=== PATIENT | female | born 1975 | race Two or more races ===

== ENCOUNTER 2021-06-06 11:04 | Outpatient (REF) | payer MEDICAID, SELFPAY ==
[2021-06-06 14:08] LABS: MANUAL DIFF FLAG NO
[2021-06-06 14:18] LABS: Basophils Percent Auto 0.4 % (0-2); Eosinophils Absolute Auto 0.2 X10*3/uL (0.0-0.4); Eosinophils Percent Auto 2.3 % (0-4); Hematocrit 36.6 % (37.0-47.0); Hemoglobin 11.7 g/dl (12.0-16.0); Imm Gran Abs Auto 0.02 X10*3/uL (0.00-0.03); Imm Gran Pct Auto 0.3 % (0.0-0.4); Lymphocytes Absolute Auto 1.7 X10*3/uL (1.2-4.9); Lymphocytes Percent Auto 22.3 % (20-40); Mean Corpuscular Hemoglobin 27.1 pg (27.0-33.0); Mean Corpuscular Volume 84.9 fL (80.0-98.0); Mean Platelet Volume 12.8 fL (9.4-12.3); Monocytes Absolute Auto 0.7 X10*3/uL (0.1-1.2); Monocytes Percent Auto 9.6 % (2-11); Neutrophils Absolute Auto 4.8 x10*3/uL (2.0-8.3); Neutrophils Percent Auto 65.1 % (45-73); Platelet Count 224 X10*3/uL (160-400); Red Blood Count 4.31 X10*6/uL (4.20-5.50); Red Cell Distribution Width 14.1 % (11.0-16.0); White Blood Count 7.4 X10*3/uL (4.8-10.8)
[2021-06-06 14:31] LABS: Estimated Average Glucose 157 mg/dL; Hemoglobin A1c % 7.1 %
[2021-06-06 14:32] LABS: Alanine Aminotransferase 15 U/L (0-31); Albumin Level 3.7 g/dL (3.5-5.0); Alkaline Phosphatase 61 U/L (39-117); Anion Gap 12 (12-20); Aspartate Amino Transferase 15 U/L (5-31); Bilirubin Total 0.4 mg/dL (0.0-1.0); Blood Urea Nitrogen 8 mg/dL (9-16); Calcium 8.7 mg/dL (8.4-10.2); Carbon Dioxide 24 mmol/L (22-29); Chloride 109 mmol/L (96-108); Cholesterol 156 mg/dL; Estimated Glomerular Filt Rate > 60; Glucose Fasting 93 mg/dL (60-99); HDL Cholesterol 34 mg/dL; LDL Cholesterol Calculated 95 mg/dl; Potassium 4.5 mmol/L (3.3-5.1); Sodium 140 mmol/L (135-145); Total Protein 7.3 g/dL (6.5-8.0); Triglycerides 139 mg/dL
[2021-06-06 14:57] LABS: Thyroid Stimulating Hormone 1.07 uIU/mL (0.32-4.0)
== END 2021-06-06 11:05 | disposition home or self-care (01) ==
LOC: HO.10HDL 11:04
PROVIDERS: Visit Provider Internal Medicine
DX: E11.9 Type 2 diabetes mellitus without complications (principal); F32.9 Major depressive disorder, single episode, unspecified; I35.0 Nonrheumatic aortic (valve) stenosis; M06.4 Inflammatory polyarthropathy; Z95.4 Presence of other heart-valve replacement
CPT/HCPCS: 36415; 80053; 80061; 83036; 84443; 85025

== ENCOUNTER 2021-09-05 10:42 | Outpatient (REF) | payer MEDICAID, SELFPAY ==
[2021-09-05 14:08] LABS: Alanine Aminotransferase 19 U/L (0-31); Albumin Level 3.7 g/dL (3.5-5.0); Alkaline Phosphatase 66 U/L (39-117); Anion Gap 11 (12-20); Aspartate Amino Transferase 14 U/L (5-31); Bilirubin Total 0.3 mg/dL (0.0-1.0); Blood Urea Nitrogen 13 mg/dL (9-16); Carbon Dioxide 27 mmol/L (22-29); Chloride 106 mmol/L (96-108); Estimated Glomerular Filt Rate > 60; Glucose Fasting 84 mg/dL (60-99); Potassium 4.3 mmol/L (3.3-5.1); Sodium 140 mmol/L (135-145); Total Protein 7.4 g/dL (6.5-8.0)
[2021-09-05 14:12] LABS: Estimated Average Glucose 143 mg/dL; Hemoglobin A1c % 6.6 %
[2021-09-05 14:22] LABS: Creatinine Urine 80.08 mg/dL; Microalbumin Urine < 5.0 mg/L
== END 2021-09-05 10:43 | disposition home or self-care (01) ==
LOC: HO.10HDL 10:42
PROVIDERS: Visit Provider Internal Medicine
DX: E11.9 Type 2 diabetes mellitus without complications (principal); E78.00 Pure hypercholesterolemia, unspecified; F32.5 Major depressive disorder, single episode, in full remission; I10 Essential (primary) hypertension; I35.0 Nonrheumatic aortic (valve) stenosis
CPT/HCPCS: 36415; 80053; 82043; 83036

== ENCOUNTER 2022-09-28 09:03 | Outpatient (REF) | payer MEDICAID, SELFPAY ==
[2022-09-28 10:43] LABS: MANUAL DIFF FLAG NO
[2022-09-28 10:47] LABS: Basophils Absolute Auto 0.1 X10*3/uL (0.0-0.2); Eosinophils Absolute Auto 0.2 X10*3/uL (0.0-0.4); Eosinophils Percent Auto 3.2 % (0-4); Hematocrit 42.5 % (37.0-47.0); Hemoglobin 13.5 g/dl (12.0-16.0); Imm Gran Abs Auto 0.02 X10*3/uL (0.00-0.03); Imm Gran Pct Auto 0.4 % (0.0-0.4); Lymphocytes Absolute Auto 1.4 X10*3/uL (1.2-4.9); Lymphocytes Percent Auto 27.9 % (20-40); Mean Corpuscular HGB Conc 31.8 g/dl (31.0-35.0); Mean Corpuscular Hemoglobin 28.3 pg (27.0-33.0); Mean Corpuscular Volume 89.1 fL (80.0-98.0); Mean Platelet Volume 11.8 fL (9.4-12.3); Monocytes Absolute Auto 0.5 X10*3/uL (0.1-1.2); Monocytes Percent Auto 10.7 % (2-11); Neutrophils Absolute Auto 2.9 x10*3/uL (2.0-8.3); Neutrophils Percent Auto 56.8 % (45-73); Platelet Count 171 X10*3/uL (160-400); Red Blood Count 4.77 X10*6/uL (4.20-5.50); Red Cell Distribution Width 12.5 % (11.0-16.0); White Blood Count 5.1 X10*3/uL (4.8-10.8)
[2022-09-28 11:19] LABS: Alanine Aminotransferase 20 U/L (0-31); Albumin Level 3.7 g/dL (3.5-5.0); Alkaline Phosphatase 60 U/L (39-117); Anion Gap 11 (12-20); Aspartate Amino Transferase 18 U/L (5-31); Bilirubin Total 0.3 mg/dL (0.0-1.0); Blood Urea Nitrogen 9 mg/dL (9-16); Calcium 8.4 mg/dL (8.4-10.2); Carbon Dioxide 25 mmol/L (22-29); Chloride 110 mmol/L (96-108); Cholesterol 165 mg/dL; Estimated Glomerular Filt Rate > 60; Glucose Fasting 110 mg/dL (60-99); HDL Cholesterol 40 mg/dL; LDL Cholesterol Calculated 103 mg/dl; Sodium 141 mmol/L (135-145); Total Protein 7.2 g/dL (6.5-8.0); Triglycerides 111 mg/dL
[2022-09-28 11:34] LABS: Vitamin B12 212 pg/mL (200-900)
== END 2022-09-28 09:04 | disposition home or self-care (01) ==
LOC: HO.10HDL 09:03
PROVIDERS: Visit Provider Internal Medicine
DX: E11.9 Type 2 diabetes mellitus without complications (principal); F32.2 Major depressive disorder, single episode, severe without psychotic features; G89.29 Other chronic pain; M06.4 Inflammatory polyarthropathy
CPT/HCPCS: 36415; 80053; 80061; 82607; 82746; 84443; 85025

== ENCOUNTER 2023-02-01 11:44 | Outpatient (REF) | payer MEDICAID, SELFPAY | END 2023-02-01 11:45 | disposition home or self-care (01) | LOC: HO.10HDL 11:44 | PROVIDERS: Visit Provider Internal Medicine | DX: Z00.00 Encounter for general adult medical examination without abnormal findings (principal); D51.9 Vitamin B12 deficiency anemia, unspecified; E11.9 Type 2 diabetes mellitus without complications; E78.00 Pure hypercholesterolemia, unspecified; F32.4 Major depressive disorder, single episode, in partial remission | CPT/HCPCS: 36415; 80053; 80061; 82043; 83036 ==

== ENCOUNTER 2023-05-02 08:23 | Outpatient (REF) | payer MEDICAID, SELFPAY ==
[2023-05-02 10:42] LABS: Alanine Aminotransferase 27 U/L (0-31); Albumin Level 3.9 g/dL (3.5-5.0); Alkaline Phosphatase 44 U/L (39-117); Anion Gap 14 (12-20); Aspartate Amino Transferase 17 U/L (5-31); Bilirubin Total 0.4 mg/dL (0.0-1.0); Blood Urea Nitrogen 8 mg/dL (9-16); Calcium 9.2 mg/dL (8.4-10.2); Carbon Dioxide 25 mmol/L (22-29); Chloride 108 mmol/L (96-108); Estimated Glomerular Filt Rate > 60; Glucose Random 130 mg/dL (60-115); Potassium 4.3 mmol/L (3.3-5.1); Sodium 143 mmol/L (135-145); Total Protein 7.3 g/dL (6.5-8.0)
[2023-05-02 10:56] LABS: Estimated Average Glucose 157 mg/dL; Hemoglobin A1c % 7.1 % (<6.0)
== END 2023-05-02 08:24 | disposition home or self-care (01) ==
LOC: HO.10HDL 08:23
PROVIDERS: Visit Provider Internal Medicine
DX: E11.9 Type 2 diabetes mellitus without complications (principal); E78.00 Pure hypercholesterolemia, unspecified; I10 Essential (primary) hypertension; R74.01 Elevation of levels of liver transaminase levels
CPT/HCPCS: 36415; 80053; 83036

== ENCOUNTER 2024-01-14 11:48 | Outpatient (REF) | payer MEDICAID, SELFPAY ==
[2024-01-14 13:51] LABS: Estimated Average Glucose 160 mg/dL; Hemoglobin A1c % 7.2 % (<6.0)
[2024-01-14 14:13] LABS: Alanine Aminotransferase 22 U/L (0-31); Albumin Level 3.6 g/dL (3.5-5.0); Alkaline Phosphatase 45 U/L (39-117); Anion Gap 13 (12-20); Aspartate Amino Transferase 15 U/L (5-31); Bilirubin Total 0.3 mg/dL (0.0-1.0); Blood Urea Nitrogen 8 mg/dL (9-16); Calcium 8.7 mg/dL (8.4-10.2); Carbon Dioxide 25 mmol/L (22-29); Chloride 110 mmol/L (96-108); Estimated Glomerular Filt Rate > 60; Glucose Random 100 mg/dL (60-115); Potassium 4.5 mmol/L (3.3-5.1); Sodium 143 mmol/L (135-145); Total Protein 6.9 g/dL (6.5-8.0)
== END 2024-01-14 11:49 | disposition home or self-care (01) ==
LOC: HO.10HDL 11:48
PROVIDERS: Visit Provider Internal Medicine
DX: I10 Essential (primary) hypertension (principal); E11.9 Type 2 diabetes mellitus without complications; E78.00 Pure hypercholesterolemia, unspecified; Z68.36 Body mass index [BMI] 36.0-36.9, adult; Z95.4 Presence of other heart-valve replacement
CPT/HCPCS: 36415; 80053; 83036

== ENCOUNTER 2024-04-11 11:01 | Outpatient (REF) | payer MEDICAID, SELFPAY ==
[2024-04-11 11:49] LABS: Estimated Average Glucose 154 mg/dL
[2024-04-11 12:23] LABS: Erythrocyte Sedimentation Rate 34 MM/HR (0-20)
[2024-04-11 12:32] LABS: Creatinine Urine 211.32 mg/dL
[2024-04-11 12:37] LABS: Alanine Aminotransferase 13 U/L (0-31); Albumin Level 3.4 g/dL (3.5-5.0); Alkaline Phosphatase 43 U/L (39-117); Anion Gap 12 (12-20); Aspartate Amino Transferase 16 U/L (5-31); Bilirubin Total 0.2 mg/dL (0.0-1.0); Blood Urea Nitrogen 11 mg/dL (9-16); Carbon Dioxide 25 mmol/L (22-29); Chloride 114 mmol/L (96-108); Cholesterol 88 mg/dL (<200); Estimated Glomerular Filt Rate > 60; Glucose Random 110 mg/dL (60-115); HDL Cholesterol 26 mg/dL (>40); LDL Cholesterol Calculated 45 mg/dL (<100); Potassium 4.7 mmol/L (3.3-5.1); Sodium 146 mmol/L (135-145); Total Protein 6.7 g/dL (6.5-8.0); Triglycerides 88 mg/dL (<150)
[2024-04-11 12:44] LABS: Rheumatoid Factor < 13.0 IU/mL (<15.0)
[2024-04-17 20:48] LABS: Cyclic Citrullinated Peptide <16 UNITS
== END 2024-04-11 11:02 | disposition home or self-care (01) ==
LOC: HO.LAB 11:01
PROVIDERS: PCP Internal Medicine; Visit Provider Internal Medicine
DX: E11.9 Type 2 diabetes mellitus without complications (principal); H26.9 Unspecified cataract; M06.4 Inflammatory polyarthropathy; Z95.4 Presence of other heart-valve replacement
CPT/HCPCS: 36415; 80053; 80061; 82043; 82570; 83036; 85652; 86200; 86431

== ENCOUNTER 2024-06-12 08:32 | Outpatient (AMB) | payer MEDICAID, SELFPAY ==
[2024-06-12 08:33] VITALS: BP 128/70; PULSE 67; O2SAT 98; BMI 35.0
--- NOTE | 2024-06-12 08:33 | A.OFFVIS_ITS ---
Vital Signs 06/12/24 08:33 Height 5 ft 1 in Weight 185 lb BMI 35.0 BP 128/70 Blood Pressure Location Lt brachial Position Sitting Pulse 67 Pulse Source Pulse Oximeter Pulse Oximetry (%) 98 Oxygen Delivery Method Room Air Intake Visit Reasons: Joint Pain Intake Note: Patient presents today for polyarthralgia, she is a new patient, referred by PCP Rosetta Penaloza. She states she has had symptoms for almost 14 years. She states that she had used Indocin and predsone.. The doctor suspended it because she had heart surgery 4 years ago. Mechanical Insulator Required: Yes Mechanical Insulator Services: Mechanical Insulator Present Mechanical Insulator Name: [id number] Curt Allergies No Known Allergies Allergy (Verified 06/12/24 08:45) Medication List - Last Reconciled 06/12/24 by Micki Campbell MD acetaminophen (Tylenol Extra Strength) 1,000 mg PO Q6H PRN aspirin 81 mg PO DAILY atorvastatin 20 mg PO BEDTIME duloxetine 60 mg PO DAILY ibuprofen 600 mg PO Q6H PRN losartan 25 mg PO DAILY metformin 1,000 mg PO BID naproxen sodium ER 500 mg PO DAILY sitagliptin phosphate (Januvia) 100 mg PO DAILY HPI Comments Details: Patient is a 48-year-old female with hypertension and diabetes on metformin who presents for evaluation of joint pain She states that she was diagnosed with rheumatoid arthritis when she was in [place] and she was placed on prednisone and indomethacin with relief to her symptoms. Never been placed on any DMARDs. She does report morning stiffness that improves after movement but also reports pain lasting all day. She intermittently gets swelling to her hands, wrists and her feet. Denies rashes, photosensitivity, alopecia, oral/nasal ulcers, sicca symptoms, lymphadenopathy, chest pain/shortness of breath, foamy urine, lower extremity edema, muscle weakness, Raynaud's Also denies history of seizure, CVA, psychosis, history of kidney problems, history of cytopenias, history of VTE including PE or DVTs [facility] Medical History (Updated 06/12/24 @ 08:48 by Micki Campbell MD) Polyarthralgia B12 deficiency Valvular heart disease Osteoarthritis Depression Hyperlipidemia Diabetes Surgical History (Updated 07/16/23 @ 11:06 by Jayne Rodriguez RN) H/O heart valve replacement with bioprosthetic valve Review of Systems Const Details: Review of Systems Constitutional: Denies fever, chills, weight loss ENT: Denies vision changes, eye pain or eye redness, dental caries, dry mouth GI: Denies nausea, vomiting, diarrhea, abdominal pain, change in BM Pulm: Denies SOB, WATERS, hemoptysis, wheezing Cards: Denies chest pain, palpitations Skin: Denies Raynaud's, rash, nail changes, photosensitivity, HIDE TRIMMER: Denies headaches, weakness, paresthesias, recurrent falls MSK: as per HPI All other systems reviewed and are unremarkable except noted above Physical Exam Vital Signs: BMI result Body Mass Index 35.0 Physical Examination CONSTITUITIONAL Patient alert and cooperative. Well appearing and in no apparent painful distress HEENT Conjunctiva and sclera clear. ?Pupils equal round and reactive to light. ?No lymphadenopathy. ?Normal dentition. No oral or nasal ulcers noted. No evidence of discoid rash to the kenn of ears CHEST/RESPIRATORY SYSTEM Normal respiratory effort and able to speak in complete sentences. ?Clear to auscultation bilaterally. ?No crackles, rales, rhonchi, wheezes heard. CARDIAC SYSTEM Regular rate and rhythm. ?S1 and S2 heard no murmurs. ?Radial pulses intact bilaterally MSK Hands: ?Good engagement director strength bilaterally - 5/5. ?No deformities noted. ?No synovitis noted to the MCPs, PIPs or DIPs. Mild tenderness to palpation of the MCPs Wrists: ?Full range of motion at the wrists without pain. ?No tenderness to palpation or synovitis noted to the wrists. Elbows: Full range of motion without pain. No tenderness, weakness, swelling, increased warmth or erythema. Shoulders: Full range of motion without pain. No tenderness, weakness, swelling, increased warmth or erythema. Hips: Full range of motion without pain. Hip bursa: No tenderness to palpation Knees: ?Full range of motion. ?No tenderness, swelling, increased warmth or erythema.?No effusion or crepitations Ankles: Full range of motion. ?No tenderness, swelling, increased warmth or erythema.? Feet: ?Negative squeeze test. ?No tenderness to palpation or swelling of the MTPs. Tender points:??No tenderness to palpation of the neck, shoulders, chest, elbows, hips, buttocks or knees. SKIN Skin intact without rashes. Results Reviewed Results Reviewed: Laboratory Tests 04/11/24 11:15 ESR 34 H Assessment & Plan Assessment & Plan (1) Polyarthralgia: Code(s): M25.50 - Pain in unspecified joint Category: Medical Plan: #Polyarthralgia No synovitis on exam today. We will check antibodies including inflammatory markers. We will give low-dose prednisone 5 mg daily as she says this helps with her pain. Get x-rays as well. Stop ibuprofen and naproxen Plan I spent 30 minutes reviewing the record and labs, seeing the patient, discussing the treatment plan and documenting in the medical record ? For next visit: * Follow up labs and blood work Orders: Orders Complement C3 Today M25.50 - Pain in unspecified joint Complement C4 Today M25.50 - Pain in unspecified joint C Reactive Protein Today M25.50 - Pain in unspecified joint Lupus Anticoagulant Panel Today M25.50 - Pain in unspecified joint Sjogren's Antibodies Today M25.50 - Pain in unspecified joint Cyclic Citrullinated Peptide Today M25.50 - Pain in unspecified joint Rheumatoid Factor Today M25.50 - Pain in unspecified joint XR hand wrist LT Today M25.50 - Pain in unspecified joint XR hand wrist RT Today M25.50 - Pain in unspecified joint XR knee LT 3V Today M25.50 - Pain in unspecified joint XR knee standing BI Today M25.50 - Pain in unspecified joint BETINA Reflex Titer and Pattern Today M25.50 - Pain in unspecified joint Anti Extractable Nuclear Ag Today M25.50 - Pain in unspecified joint Anti DNA DS Antibody Today M25.50 - Pain in unspecified joint DNA Double Stranded-Crithidia Today M25.50 - Pain in unspecified joint Erythrocyte Sedimentation Rate Today M25.50 - Pain in unspecified joint Protein Creatinine Ratio, Ur Today M25.50 - Pain in unspecified joint UA w Microscopic Today M25.50 - Pain in unspecified joint Beta-2 Glycoprotein Antibody Today M25.50 - Pain in unspecified joint Cardiolipin Antibodies Today M25.50 - Pain in unspecified joint XR knee RT 3V Today M25.50 - Pain in unspecified joint Medications: New prednisone 5 mg PO DAILY 30 tabs 0RF M25.50 - Pain in unspecified joint Coding Level of Care Code New Pt Level 3 (84810) Diagnoses Polyarthralgia M25.50
== END 2024-06-12 09:05 | disposition home or self-care (01) ==
PROVIDERS: PCP Internal Medicine; Visit Provider Student in an Organized Health Care Education/Training Program
DX: M25.50 Pain in unspecified joint (principal)
CPT/HCPCS: 99203

== ENCOUNTER 2024-06-12 08:32 | Outpatient (REF) | payer MEDICAID, SELFPAY ==
[2024-06-12 10:21] LABS: Appearance Urine Clear; Color Urine Yellow; Glucose Urine UA Negative (Negative); Leukocyte Esterase Urine Negative (Negative); Nitrite Urine Negative (Negative); Specific Gravity - Urine <= 1.005 (1.005-1.025); Urine Blood Negative (Negative); Urine Ketones Negative (Negative); Urine Protein Negative (Neg-Trace)
[2024-06-12 10:23] LABS: Bacteria Urine Trace (None Seen); Hyaline Casts Urine 0-2 /LPF (0-2); RBC Urine 0-2 /HPF (0-2); WBC Urine 0-5 /HPF (0-5)
[2024-06-12 10:49] LABS: C Reactive Protein 0.14 mg/dL (< or = 0.50)
[2024-06-12 10:50] LABS: Rheumatoid Factor < 13.0 IU/mL (<15.0)
[2024-06-12 11:01] LABS: Creatinine Urine 27.78 mg/dL; Total Protein Urine Random < 7 mg/dL (<12)
[2024-06-12 11:05] LABS: Erythrocyte Sedimentation Rate 13 MM/HR (0-20)
[2024-06-13 13:32] LABS: Complement C3 99 mg/dL (83-193)
[2024-06-15 06:13] LABS: DRVVT 1:1 Mix NOT CORRECTED (CORRECTED); DRVVT 1:1 Mix Interpretation Positive; DRVVT Confirmation Positive (Negative); Hexagonal Phase Neutralization Negative (Negative); PTT (LAC) Screen 51 sec (<=40)
[2024-06-16 13:43] LABS: Anti Nuclear Antibody Screen NEGATIVE (NEGATIVE)
[2024-06-16 18:39] LABS: Anti DNA DS Antibody <1 IU/mL; Antibody to SS-A Antigen <1.0 NEG AI (<1.0 NEG); Antibody to SS-B Antigen <1.0 NEG AI (<1.0 NEG); SM/Ribonucleoprotein Ab <1.0 NEG AI (<1.0 NEG); Smith Protein <1.0 NEG AI (<1.0 NEG)
[2024-06-16 20:18] LABS: Cardiolipin IgG Ab 3.3 GPL-U/mL; Cardiolipin IgM Ab <2.0 MPL-U/mL
[2024-06-16 21:43] LABS: Cyclic Citrullinated Peptide <16 UNITS
[2024-06-17 22:58] LABS: Beta-2 Glycoprotein IgA 22.8 U/mL (<20.0); Beta-2 Glycoprotein IgG 6.2 U/mL (<20.0); Beta-2 Glycoprotein IgM <2.0 U/mL (<20.0)
[2024-06-20 14:24] LABS: DNAds, Crithidia Antibody Positive (Negative)
== END 2024-06-12 08:33 | disposition home or self-care (01) ==
LOC: HO.XRAY 08:32
PROVIDERS: PCP Internal Medicine; Visit Provider Student in an Organized Health Care Education/Training Program
DX: M25.50 Pain in unspecified joint (principal)
CPT/HCPCS: 36415; 73110; 73130; 73562; 73564; 81001; 82570; 84156; 85597; 85598; 85613; 85652; 85730; 86038; 86140; 86146; 86147; 86160; 86200; 86225; 86235; 86255; 86431; 99202

== ENCOUNTER 2024-07-02 15:28 | Outpatient (AMB) | payer MEDICAID, SELFPAY ==
--- NOTE | 2024-07-02 15:32 | A.OFFVIS_ITS ---
Vital Signs 07/02/24 15:38 Height 5 ft 1 in Weight 185 lb 3.013 oz BMI 35.0 BP 130/80 Blood Pressure Location Lt brachial Position Sitting Respiration 16 Pulse 65 Pulse Source Pulse Oximeter Pulse Oximetry (%) 98 Intake Visit Reasons: follow up/cm Intake Note: Patient presents for follow up. Burner Technician Required: Yes Burner Technician Language: Rubber Calender Helper Services: Burner Technician Present Burner Technician Name: Joselin [id number] Information Interpreted: non-clinical & clinical Allergies No Known Allergies Allergy (Verified 07/02/24 15:35) Medication List - Last Reconciled 07/02/24 by Micki Campbell MD acetaminophen (Tylenol Extra Strength) 1,000 mg PO Q6H PRN aspirin 81 mg PO DAILY atorvastatin 20 mg PO BEDTIME duloxetine 60 mg PO DAILY losartan 25 mg PO DAILY metformin 1,000 mg PO BID prednisone 5 mg PO DAILY sitagliptin phosphate (Januvia) 100 mg PO DAILY HPI Comments Details: Patient is a 48-year-old female with hypertension and diabetes on metformin who presents for follow up Interval History: Patient last seen 06/12/2024. At that visit she was evaluated for polyarthralgias. She made mention that she had response to prednisone and indomethacin in [place] and so she was given a trial of 5 mg of prednisone. Today patient reports feeling much better on the 5 mg of prednisone. Denies any complaints today. Rheumatologic History: Initial History: She states that she was diagnosed with rheumatoid arthritis when she was in [place] and she was placed on prednisone and indomethacin with relief to her symptoms. Never been placed on any DMARDs. She does report morning stiffness that improves after movement but also reports pain lasting all day. She intermittently gets swelling to her hands, wrists and her feet. Denies rashes, photosensitivity, alopecia, oral/nasal ulcers, sicca symptoms, lymphadenopathy, chest pain/shortness of breath, foamy urine, lower extremity edema, muscle weakness, Raynaud's Also denies history of seizure, CVA, psychosis, history of kidney problems, history of cytopenias, history of VTE including PE or DVTs Current Rheumatology Medication(s): Prednisone 5mg daily PFS Medical History (Updated 07/02/24 @ 15:55 by Micki Campbell MD) Long-term use of Plaquenil Seronegative inflammatory arthritis Polyarthralgia B12 deficiency Valvular heart disease Osteoarthritis Depression Hyperlipidemia Diabetes Surgical History H/O heart valve replacement with bioprosthetic valve Family History (Updated 07/02/24 @ 15:37 by LUCAS Velarde) Father Colon cancer Social History (Updated 07/02/24 @ 15:37 by LUCAS Velarde) Household Members: Family Housing: Apartment Alcohol intake: current Comment: OCC Patient Tobacco Use Status: Former Tobacco user Cigarettes Per Day: 0.5 Years Smoked: 30 Review of Systems Const Details: Review of Systems Constitutional: Denies fever, chills, weight loss ENT: Denies vision changes, eye pain or eye redness, dental caries, dry mouth GI: Denies nausea, vomiting, diarrhea, abdominal pain, change in BM Pulm: Denies SOB, WATERS, hemoptysis, wheezing Cards: Denies chest pain, palpitations Skin: Denies Raynaud's, rash, nail changes, photosensitivity, APPLICATION SUPPORT INTERN: Denies headaches, weakness, paresthesias, recurrent falls MSK: as per HPI All other systems reviewed and are unremarkable except noted above Physical Exam Vital Signs: Last Vital Signs Pulse 65 07/02/24 15:38 Resp 16 07/02/24 15:38 BP 130/80 07/02/24 15:38 Pulse Ox 98 07/02/24 15:38 BMI result Body Mass Index 35.0 Physical Examination CONSTITUITIONAL Patient alert and cooperative. Well appearing and in no apparent painful distress HEENT Conjunctiva and sclera clear. ?Pupils equal round and reactive to light. ?No lymphadenopathy. No oral or nasal ulcers noted. No evidence of discoid rash to the kenn of ears CHEST/RESPIRATORY SYSTEM Normal respiratory effort and able to speak in complete sentences. ?Clear to auscultation bilaterally. ?No crackles, rales, rhonchi, wheezes heard. CARDIAC SYSTEM Regular rate and rhythm. ?S1 and S2 heard no murmurs. ?Radial pulses intact bilaterally MSK Hands: ?Good windows desktop engineer strength bilaterally - 5/5. ?No deformities noted. ?No synovitis noted to the MCPs, PIPs or DIPs. Mild tenderness to palpation of the MCPs Wrists: ?Full range of motion at the wrists without pain. ?No tenderness to palpation or synovitis noted to the wrists. Elbows: Full range of motion without pain. No tenderness, weakness, swelling, increased warmth or erythema. Shoulders: Full range of motion without pain. No tenderness, weakness, swelling, increased warmth or erythema. Hips: Full range of motion without pain. Hip bursa: No tenderness to palpation Knees: ?Full range of motion. ?No tenderness, swelling, increased warmth or erythema.?No effusion or crepitations Ankles: Full range of motion. ?No tenderness, swelling, increased warmth or erythema.? Feet: ?Negative squeeze test. ?No tenderness to palpation or swelling of the MTPs. Tender points:??No tenderness to palpation of the neck, shoulders, chest, elbows, hips, buttocks or knees. SKIN Skin intact without rashes. Results Reviewed Results Reviewed: Laboratory Tests 09/28/22 04/11/24 06/12/24 09:14 11:15 09:34 WBC 5.1 RBC 4.77 Hgb 13.5 Hct 42.5 Plt Count 171 ESR 34 H 13 Sodium 146 H Potassium 4.7 Chloride 114 H Carbon Dioxide 25 BUN 11 Creatinine 0.83 C-Reactive Protein 0.14 Rheumatoid Factor < 13.0 Cycl Citrul Peptide IgG <16 BETINA Screen NEGATIVE Anti-ds DNA Titer (Crith) 1:320 H Anti-ds DNA (Crithidia) Positive A Beta-2-GPI IgA Ab 22.8 H Assessment & Plan Assessment & Plan (1) Seronegative inflammatory arthritis: Code(s): M13.80 - Other specified arthritis, unspecified site Category: Medical Plan: #Seronegative RA Patient with response to low-dose prednisone. We will transition to Plaquenil as her steroid sparing DMARD. She is to continue the prednisolone upon currently with the Plaquenil for 3 months and then stop the prednisone and just be on Plaquenil for a month and then follow-up. (2) Long-term use of Plaquenil: Code(s): Z79.899 - Other terminal makeup operator (current) drug therapy Category: Medical Plan: #Long-term Use of Hydroxychloroquine Discussed with patient the risks and benefits of hydroxychloroquine in managing the rheumatic condition Benefits include: - Reduced pain, reduce mortality, maintenance of remission and reduction of flares Risks include: - GI upset, skin hyperpigmentation, retinal toxicity (especially after more than 5 years of use), myopathy Advised yearly ophthalmology visits Last ophthalmology visit: referral placed Plan I spent 20 minutes reviewing the record and labs, seeing the patient, discussing the treatment plan and documenting in the medical record ? Orders: Referrals Ophthalmology Referral M13.80 - Other specified arthritis, unspecified site, Z79.899 - Other snf (current) drug therapy Medications: New hydroxychloroquine (Plaquenil) 200 mg PO BID 180 tabs 1RF 90 days M13.80 - Other specified arthritis, unspecified site Refilled prednisone 5 mg PO DAILY 30 tabs 3RF M13.80 - Other specified arthritis, unspecified site Coding Level of Care Code Est Pt Level 3 (58950) Diagnoses Seronegative inflammatory arthritis M13.80 Long-term use of Plaquenil Z79.899
[2024-07-02 15:38] VITALS: BP 130/80; PULSE 65; RESP 16; O2SAT 98; BMI 35.0
== END 2024-07-02 15:53 | disposition home or self-care (01) ==
PROVIDERS: PCP Internal Medicine; Visit Provider Student in an Organized Health Care Education/Training Program
DX: M13.80 Other specified arthritis, unspecified site (principal); Z79.899 Other long term (current) drug therapy
CPT/HCPCS: 99213

== ENCOUNTER → 2024-07-02 15:28 | Outpatient (BNVA) | payer MEDICAID, SELFPAY | PROVIDERS: PCP Internal Medicine; Visit Provider Student in an Organized Health Care Education/Training Program | DX: M13.80 Other specified arthritis, unspecified site (principal); Z79.899 Other long term (current) drug therapy | CPT/HCPCS: 99212 ==

== ENCOUNTER 2024-08-13 13:47 | Outpatient (AMB) | payer MEDICAID, SELFPAY ==
[2024-08-13 13:52] VITALS: BP 146/80; PULSE 70; O2SAT 98; BMI 34.9
--- NOTE | 2024-08-13 13:52 | MHC.OFFVIS ---
Vital Signs 08/13/24 13:52 Height 5 ft 1 in Weight 184 lb 11.958 oz BMI 34.9 BP 146/80 H Blood Pressure Location Lt radial Position Sitting Pulse 70 Pulse Source Pulse Oximeter Pulse Oximetry (%) 98 Oxygen Delivery Method Room Air Intake Visit Reasons: Colonoscopy Screening Intake Note: NEW PATIENT Reason; Screening. Prior hx of colo/egd? N Concerns/Questions? No significant GI concerns per pt. FMHx CRC Afloat Cryptologic Manager Required: No Allergies No Known Allergies Allergy (Verified 08/13/24 14:00) HPI HPI Colonoscopy Screening: Details: 49 year old? female past medical history of arthritis, diabetes, hypertension, status post bioprosthetic valve replacement is here today for pre colonoscopy screening.? Patient was sent to us by her PCP.? This is her first colonoscopy screening.? Patient aortic valve replaced March 24 2020. Patient is followed by [facility]. Patient reports last echo few months ago and was told that everything was normal. Patient believes that her father had some type of cancer, unsure if it was colon or prostate. Patient will ask her sister and will call us back. Patient denies any gastrointestinal symptoms in the past or at present.? Denies any personal or family history of gastrointestinal disease, colon polyps, or CRC.? Denies history of difficulty with sedation or anesthesia in the past.? Negative for history of sleep apnea.? Denies any history of cardiac, renal, pulmonary, or hepatic disease.?? No history of infectious? diseases like hepatitis A, B, C, HIV or tuberculosis.? Patient is on low-dose aspirin [facility] Medical History Long-term use of Plaquenil Seronegative inflammatory arthritis Polyarthralgia B12 deficiency Valvular heart disease Osteoarthritis Depression Hyperlipidemia Diabetes Surgical History H/O heart valve replacement with bioprosthetic valve Family History Father No problems noted. Social History Household Members: Family Housing: Apartment Alcohol intake: current Comment: OCC Patient Tobacco Use Status: Former Tobacco user Cigarettes Per Day: 0.5 Years Smoked: 30 Review of Systems Const Denies weight gain and Denies weight loss ENT Reports no additional complaints, Denies dysphagia and Denies odynophagia Card Reports no additional complaints Resp Reports no additional complaints GI Denies abdominal pain, Denies belching, Denies melena, Denies bloating, Denies change in bowel habits, Denies dysphagia, Denies excessive flatus, Denies dyspepsia, Denies heartburn, Denies diarrhea, Denies loose stools, Denies nausea, Denies odynophagia and Denies vomiting Musc Reports no additional complaints Neuro Reports no additional complaints Psych Reports no additional complaints Endo Reports no additional complaints Physical Exam Vital Signs: Last Vital Signs Pulse 70 08/13/24 13:52 BP 146/80 H 08/13/24 13:52 Pulse Ox 98 08/13/24 13:52 Oxygen Delivery Method Room Air 08/13/24 13:52 BMI result Body Mass Index 34.9 Const General: healthy appearing and no acute distress Nutritional Appearance: obese Orientation/consciousness: patient oriented x3 Resp Effort & Inspection: normal respiratory effort, able to speak in complete sentences, no tracheal deviation and symmetric chest movement Auscultation: clear to auscultation bilaterally Cardio Rate: regular rate GI Inspection: Yes normal to inspection, No distended and Yes obesity Palpation (GI): Soft to palpation, not firm, nontender and No hepatosplenomegaly present Auscultation: normal bowel sounds General: Yes no CVA tenderness Back/Spine/Pelvis Back: no CVA tenderness Skin General skin exam: elasticity normal, turgor normal and dry skin Neuro General: patient oriented x3 Psych Appearance: grossly normal Mental Status: mental status grossly normal Assessment & Plan Assessment & Plan (1) Screen for colon cancer: Code(s): Z12.11 - Encounter for screening for malignant neoplasm of colon Plan Patient denies any GI, cardiac or respiratory symptoms.? Denies any issues with anesthesia in the past.? Denies any history of sleep apnea.? No history infectious diseases in the past or present.? Patient is on low-dose aspirin. Unsure of family history of CRC. Patient reports that her father was diagnosed with cancer but unsure if it was prostate or colon cancer. She will call her sister and let us know. History of bioprosthetic aortic valve replacement in February of 2020. Patient sees [facility]. Please call the group for clearance. Patient reports her last echo was done few months ago and she was told that it is normal.? Patient denies melena, hematochezia, unintentional weight loss or ribbon like stools.? Discussed at length the pre-procedure,? prep, diet & medications as well as what to expect prior, during and after the procedure.?? Stressed the importance of good bowel prep.? Recommended the use of Vaseline or Calmoseptine OTC & baby wipes with bowel movements to promote comfort.? ?Patient verbalizes understanding and agrees to plan of care.? She was given the opportunity to ask questions and all questions answered.? We will see her after the procedure.? Medications: New bisacodyl (Dulcolax (bisacodyl)) take 4 tabs at noon the day before your colonoscopy 20 mg (4 x 5 mg) PO ONCE 1 day 4 tabs 0RF Z12.11 - Encounter for screening for malignant neoplasm of colon polyethylene glycol 3350 (Miralax) As directed by gastroenterology department at [facility] 238 grams PO ONCE 238 grams 0RF Z12.11 - Encounter for screening for malignant neoplasm of colon Coding Level of Care Code New Pt Level 3 (58424) Diagnoses Screen for colon cancer Z12.11 Time Spent (min) 40 Comment 30 minutes spent with patient and additional 10 minutes spent reviewing her records
== END 2024-08-13 16:45 | disposition home or self-care (01) ==
PROVIDERS: PCP Internal Medicine; Visit Provider Nurse Practitioner Family
DX: Z01.818 Encounter for other preprocedural examination (principal); Z12.11 Encounter for screening for malignant neoplasm of colon
CPT/HCPCS: 99202

== ENCOUNTER → 2024-08-13 13:47 | Outpatient (BNVA) | payer MEDICAID, SELFPAY | PROVIDERS: PCP Internal Medicine; Visit Provider Nurse Practitioner Family | DX: Z01.818 Encounter for other preprocedural examination (principal) | CPT/HCPCS: 99212 ==

== ENCOUNTER 2025-01-14 12:02 | Outpatient (REF) | payer MEDICAID, SELFPAY ==
[2025-01-14 12:38] LABS: Baso%MD 0.5 %; Eos%MD 1.2 %; Hematocrit 38.6 % (37.0-47.0); Hemoglobin 12.7 g/dl (12.0-16.0); IG%MD 0.5 %; Lymph%MD 28.9 %; Mean Corpuscular HGB Conc 32.9 g/dl (31.0-35.0); Mean Corpuscular Hemoglobin 27.7 pg (27.0-33.0); Mean Corpuscular Volume 84.1 fL (80.0-98.0); Mean Platelet Volume 11.5 fL (9.4-12.3); Mono%MD 6.9 %; Platelet Count 215 X10*3/uL (160-400); Red Blood Count 4.59 X10*6/uL (4.20-5.50); Red Cell Distribution Width 13.2 % (11.0-16.0); White Blood Count 6.1 X10*3/uL (4.8-10.8)
[2025-01-14 13:04] LABS: Alanine Aminotransferase 33 U/L (0-31); Alkaline Phosphatase 61 U/L (39-117); Anion Gap 13 (12-20); Aspartate Amino Transferase 27 U/L (5-31); Bilirubin Total 0.3 mg/dL (0.0-1.0); Blood Urea Nitrogen 12 mg/dL (9-16); Calcium 9.7 mg/dL (8.4-10.2); Carbon Dioxide 26 mmol/L (22-29); Chloride 111 mmol/L (96-108); Estimated Glomerular Filt Rate > 60; Glucose Random 107 mg/dL (60-115); Sodium 145 mmol/L (135-145); Total Protein 7.6 g/dL (6.5-8.0)
[2025-01-14 13:14] LABS: Erythrocyte Sedimentation Rate 25 MM/HR (0-20)
[2025-01-14 13:33] LABS: Band Neutrophils Percent 1 % (3-5); Basophils Abs Manual 0.1 X10*3/uL (0.0-0.2); Basophils Percent Manual 1 % (0-2); Eosinophils Absolute Manual 0.1 X10*3/uL (0.0-0.4); Eosinophils Percent Manual 1 % (0-4); Lymphocytes Absolute Manual 1.5 X10*3/uL (1.2-4.9); Lymphocytes Percent Manual 25 % (20-40); Monocytes Absolute Manual 0.3 X10*3/uL (0.1-1.2); Monocytes Percent Manual 5 % (2-11); Neutrophils Absolute Manual 4.1 X10*3/uL (2.0-8.3); Neutrophils Percent Manual 67 % (45-73)
[2025-01-14 13:34] LABS: Platelet Estimate NORMAL (NORMAL); Platelet Morphology Comment NORMAL; RBC Morphology NOTED
[2025-01-14 13:35] LABS: Ovalocytes 2+ (15-30) /OIF
--- OUTSIDE RECORDS SUMMARY | 2025-01-14 13:59 | XMS_ITS | Clinical Summary ---
Author Organization [facility] Address [address] [place] [address] Care Team Providers Care Materials Planner/Production Planner Name Role Phone Unavailable Primary Care Provider Unavailabl e Source Comments PLEASE NOTE, if this patient is a minor, it may be UNLAWFUL to discuss sensitive information that is contained in these records (such as FAMILY PLANNING, MENTAL HEALTH or SUBSTANCE ABUSE) with the minor patient's parent or other person without the patient's specific authorization.[facility] Social History Tobacco Use Types Packs/Day Years Used Date Smoking Tobacco: Never Assessed Social Connections Answer Date Recorded Social Connections and Isolation 0 09/30/2021 Financial Resource Strain Answer Date R ecorded Financial Resource Strain 0 2021 Stress Answer Date Recorded Stress 0 09/30/2021 Physical Activity Answer Date Recorded Physical Activity 0 09/30/2021 Food Insecurity Answer Date Recorded Food 0 09/30/2021 Transportation Needs Answer Date Record ed Transportation 0 09/30/2021 Housing Stability Answer Date Recorded Housing 0 09/30/2021 Safety and Environment Answer Date Tremayne rded Safety 0 09/30/2021 Utilities Answer Date Recorded Utilities 0 09/30/2021 Employment Answer Date Recorded Employment 0 09/30/2021 Comments Unknown Sex and Gender Information Value Date Recorded Sex Assigned at Not on file Legal Sex Female 11:18 AM PDT Gender Identity Not on file Sexual Orientation Not on file Plan of Treatment Not on file Insurance [place] [facility]
== END 2025-01-14 12:03 | disposition home or self-care (01) ==
LOC: HO.LAB 12:02
PROVIDERS: PCP Internal Medicine; Visit Provider Student in an Organized Health Care Education/Training Program
DX: M13.80 Other specified arthritis, unspecified site (principal)
CPT/HCPCS: 36415; 80053; 85007; 85027; 85652; 86140

== ENCOUNTER 2025-01-23 12:24 | Outpatient (AMB) | payer MEDICAID, SELFPAY ==
[2025-01-23 12:32] VITALS: BP 132/72; PULSE 76; O2SAT 99; BMI 33.6
--- NOTE | 2025-01-23 12:32 | MHC.OFFVIS ---
Vital Signs 01/23/25 12:32 Height 5 ft 1 in Weight 177 lb 11.081 oz BMI 33.6 BP 132/72 Blood Pressure Location Lt brachial Position Sitting Pulse 76 Pulse Source Pulse Oximeter Pulse Oximetry (%) 99 Oxygen Delivery Method Room Air Intake Visit Reasons: follow up Intake Note: Patient presents for blood test results today. Staff Engineer Required: Yes Staff Engineer Name: Tahir [id number] Information Interpreted: clinical only Allergies No Known Allergies Allergy (Verified 01/23/25 12:37) Medication List - Last Reconciled 01/23/25 by Micki Campbell MD acetaminophen (Tylenol Extra Strength) 1,000 mg PO Q6H PRN aspirin 81 mg PO DAILY atorvastatin 20 mg PO BEDTIME bisacodyl (Dulcolax (bisacodyl)) 20 mg (4 x 5 mg) PO ONCE 1 day duloxetine 60 mg PO DAILY hydroxychloroquine (Plaquenil) 200 mg PO BID 90 days losartan 25 mg PO DAILY metformin 1,000 mg PO BID sitagliptin phosphate (Januvia) 100 mg PO DAILY HPI Comments Details: Patient is a 48-year-old female with hypertension and diabetes on metformin who presents for follow up Interval History: Patient last seen 07/02/24 with me. Visit summary - Pain improved with prednisone - started on plaquenil as steroid sparing - Taper prednisone Today - started plaquenil but not helpful - stopped prednisone - pain: hands and back Rheumatologic History: ?Seronegative inflammatory arthritis Initial History: She states that she was diagnosed with rheumatoid arthritis when she was in [place] and she was placed on prednisone and indomethacin with relief to her symptoms. Never been placed on any DMARDs. She does report morning stiffness that improves after movement but also reports pain lasting all day. She intermittently gets swelling to her hands, wrists and her feet. Denies rashes, photosensitivity, alopecia, oral/nasal ulcers, sicca symptoms, lymphadenopathy, chest pain/shortness of breath, foamy urine, lower extremity edema, muscle weakness, Raynaud's Also denies history of seizure, CVA, psychosis, history of kidney problems, history of cytopenias, history of VTE including PE or DVTs Current Rheumatology Medication(s): Plaquenil 200mg bid PFSH Medical History (Updated 01/23/25 @ 13:01 by Micki Campbell MD) Seronegative inflammatory arthritis Polyarthralgia B12 deficiency Valvular heart disease Osteoarthritis Depression Hyperlipidemia Diabetes Surgical History H/O heart valve replacement with bioprosthetic valve Family History (Updated 08/13/24 @ 14:20 by DUTCH Blum) Father No problems noted. Social History Household Members: Family Housing: Apartment Alcohol intake: current Comment: [facility] Patient Tobacco Use Status: Former Tobacco user Cigarettes Per Day: 0.5 Years Smoked: 30 Review of Systems Const Details: Review of Systems Constitutional: Denies fever, chills, weight loss ENT: Denies vision changes, eye pain or eye redness, dental caries, dry mouth GI: Denies nausea, vomiting, diarrhea, abdominal pain, change in BM Pulm: Denies SOB, WATERS, hemoptysis, wheezing Cards: Denies chest pain, palpitations Skin: Denies Raynaud's, rash, nail changes, photosensitivity, LOOKBACK COORDINATOR: Denies headaches, weakness, paresthesias, recurrent falls MSK: as per HPI All other systems reviewed and are unremarkable except noted above Physical Exam Vital Signs: Last Vital Signs Pulse 76 01/23/25 12:32 BP 132/72 01/23/25 12:32 Pulse Ox 99 01/23/25 12:32 Oxygen Delivery Method Room Air 01/23/25 12:32 BMI result Body Mass Index 33.6 Vital signs reviewed Physical Examination CONSTITUITIONAL Patient alert and cooperative. Well appearing and in no apparent painful distress HEENT Conjunctiva and sclera clear. ?Pupils equal round and reactive to light. ?No lymphadenopathy. No oral or nasal ulcers noted. No evidence of discoid rash to the kenn of ears CHEST/RESPIRATORY SYSTEM Normal respiratory effort and able to speak in complete sentences. ?Clear to auscultation bilaterally. ?No crackles, rales, rhonchi, wheezes heard. CARDIAC SYSTEM Regular rate and rhythm. ?S1 and S2 heard no murmurs. ?Radial pulses intact bilaterally MSK Hands: ?Able to make a fist. Mild tenderness to palpation of the MCPs and PIPs. No swelling Wrists: ?Full range of motion at the wrists without pain. ?No tenderness to palpation or synovitis noted to the wrists. Elbows: Full range of motion without pain. No tenderness, weakness, swelling, increased warmth or erythema. Shoulders: Full range of motion without pain. No tenderness, weakness, swelling, increased warmth or erythema. Knees: ?Full range of motion. ?No tenderness, swelling, increased warmth or erythema.?No effusion or crepitations Ankles: Full range of motion. ?No tenderness, swelling, increased warmth or erythema.? Feet: ?Negative squeeze test. ?No tenderness to palpation or swelling of the MTPs. Tender points:??No tenderness to palpation of the neck, shoulders, chest, elbows, hips, buttocks or knees. SKIN Skin intact without rashes. Results Reviewed Results Reviewed: Laboratory Tests 06/12/24 01/14/25 09:34 12:20 WBC 6.1 RBC 4.59 Hgb 12.7 Plt Count 215 D ESR 13 25 H Sodium 145 Potassium 5.0 Chloride 111 H Carbon Dioxide 26 BUN 12 Creatinine 0.73 Calcium 9.7 D Total Bilirubin 0.3 AST 27 ALT 33 H C-Reactive Protein 0.14 0.70 H Albumin 4.0 Rheumatology labs 09/28/22 04/11/24 06/12/24 09:14 11:15 09:34 Rheumatoid Factor < 13.0 Cycl Citrul Peptide IgG <16 BETINA Screen NEGATIVE Anti-ds DNA Titer (Crith) 1:320 H Anti-ds DNA (Crithidia) Positive A Beta-2-GPI IgA Ab 22.8 H Assessment & Plan Assessment & Plan (1) Seronegative inflammatory arthritis: Code(s): M13.80 - Other specified arthritis, unspecified site Category: Medical Plan: #Seronegative inflammatory arthritis Patient is a 49-year-old female with seronegative inflammatory arthritis here today for follow up. She had no response to Plaquenil. We will try methotrexate Plan - Stop plaquenil - Mtx 15mg weekly - Folic acid 1mg daily - Meloxicam 15mg daily - RTC 4 months - Labs before visit: CBC, CMP, ESR, CRP (2) Encounter for methotrexate monitoring: Code(s): Z51.81 - Encounter for therapeutic drug level monitoring; Z79.631 - intermediate (current) use of antimetabolite agent Plan: #Long-term Current Use of Methotrexate Discussed with patient the benefits and risks of methotrexate for managing their rheumatic condition Benefits include reduced pain, reduced mortality, maintenance of remission and reduction of flares Risks include oral ulcers, photosensitivity, hepatotoxicity, hematologic toxicity, pneumonitis, flu-like symptoms (especially day after administration), nodulosis, lymphomas ? Limit alcohol and avoid Bactrim ? 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-steroidal anti-inflammatories (nsaid): Code(s): Z79.1 - intermediate (current) use of non-steroidal anti-inflammatories (NSAID) Plan: #Long-term Use of NSAIDs Discussed with patient the benefits and risk of NSAIDs for managing the rheumatic condition Benefits include: - Reduced the pain, improved mobility, and increased participation in activities Risks include: - GI upset, potential also worsening or formation (especially in patients > 65 years old) Recommended using proton pump inhibitors (PPIs) for the duration of NSAID use to reduce the risk of gastric ulcers Plan I spent 32 minutes reviewing the record and labs, taking a history, examining the patient, discussing the treatment plan, ordering diagnostic work up and documenting in the medical record Orders: Orders Complete Blood Count Auto Diff 4 Months M13.80 - Other specified arthritis, unspecified site Comprehensive Met. Panel 4 Months M13.80 - Other specified arthritis, unspecified site C Reactive Protein 4 Months M13.80 - Other specified arthritis, unspecified site Erythrocyte Sedimentation Rate 4 Months M13.80 - Other specified arthritis, unspecified site Medications: New folic acid 1 mg PO DAILY 90 tabs 1RF M13.80 - Other specified arthritis, unspecified site meloxicam 15 mg PO DAILY 90 tabs 1RF M25.50 - Pain in unspecified joint methotrexate sodium 15 mg (6 x 2.5 mg) PO QWEEK 78 tabs 1RF 90 days M13.80 - Other specified arthritis, unspecified site Discontinued hydroxychloroquine (Plaquenil) Discontinued Reason: Doctor's Order 200 mg PO BID 90 days 180 tabs 1RF M13.80 - Other specified arthritis, unspecified site Coding Level of Care Code Est Pt Level 4 (24723) Complex EM visit Add On G2211 Diagnoses Seronegative inflammatory arthritis M13.80 Encounter for methotrexate monitoring Z51.81; Z79.631 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
--- OUTSIDE RECORDS SUMMARY | 2025-01-23 13:11 | XMS_ITS | Clinical Summary ---
Author Organization [facility] Address [address] [place] [address] Care Team Providers Care Financial Representative Name Role Phone Unavailable Primary Care Provider [...] Plan of Treatment Not on file Insurance [place] DENT[place] [facility] DENTAL
== END 2025-01-23 13:05 | disposition home or self-care (01) ==
LOC: HO.RHE 12:24
PROVIDERS: PCP Internal Medicine; Visit Provider Student in an Organized Health Care Education/Training Program
DX: M13.80 Other specified arthritis, unspecified site (principal); Z51.81 Encounter for therapeutic drug level monitoring; Z79.631 Long term (current) use of antimetabolite agent; Z79.1 Long term (current) use of non-steroidal anti-inflammatories (NSAID)
CPT/HCPCS: 99214

== ENCOUNTER → 2025-01-23 12:24 | Outpatient (BNVA) | payer MEDICAID, SELFPAY | PROVIDERS: PCP Internal Medicine; Visit Provider Student in an Organized Health Care Education/Training Program | DX: R60.0 Localized edema (principal); Z51.81 Encounter for therapeutic drug level monitoring; M13.80 Other specified arthritis, unspecified site; Z79.899 Other long term (current) drug therapy; Z79.1 Long term (current) use of non-steroidal anti-inflammatories (NSAID) | CPT/HCPCS: 99212 ==

== ENCOUNTER 2025-01-27 13:01 | Outpatient (REF) | payer MEDICAID, SELFPAY ==
--- OUTSIDE RECORDS SUMMARY | 2025-01-27 14:03 | XMS_ITS | Clinical Summary ---
Author Organization [address] [place] [address] [place] [phone] Phone Care Team Providers Care Stone Mill Operator Name Role Phone Rosetta Hawkins MD Primary Care Provider [phone] Allergies No known active allergies Medications predniSONE (DELTASONE) 10 mg tablet Take 1 tablet by mouth daily. Active metFORMIN (GLUCOPHAGE) 500 mg tablet Take 2 Tablets by mouth 2 times daily (with meals). Active aspirin 81 mg EC tablet Take 81 mg by mouth daily. Active atorvastatin (LIPITOR) 10 mg tablet Take 1 Tablet by mouth daily. Active SITagliptin phosphate (JANUVIA) 100 mg tablet Take 1 Tablet by mouth daily Active Active Problems Problem Noted Date Diagnosed Date Abnormality of heart valve 09/26/2021 Overview (05/05/2024): Aortic valve replacement 03/24/20 Anemia 09/26/2021 Diabetes mellitus ([facility] V24, [facility] V28) Dyslipidemia 09/26/2021 Overview (05/05/2024): Last Assessment & Plan: The patient was recently started on atorvastatin by her PCP for her recent elevated cholesterol levels. I have reviewed with the patient the importance of a heart healthy lifestyle which includes eating a low-fat low-salt diet, getting regular exercise, maintaining a healthy weight, not smoking, and following up with routine medical care. Inflammatory arthritis 08/03/2021 History of aortic valve repl acement with bioprosthetic valve 08/03/2021 Overview (05/05/2024): Last Assessment & Plan: Patient has a history of aortic stenosis status post bioprosthetic aortic valve replacement in 2019. She was last seen by Dr. Cruz where she was establishing care in [facility] after she moved from [place]. Her most recent echocardiogram was stable and revealed LVEF 60 to 65% and bioprosthesis was well-seated and functioning normally. She continues on aspirin monotherapy and denies symptoms today. We discussed antibiotic prophylaxis. Surgical History Surgery Date Site/Laterality Comments OTHER SURGICAL HISTORY 03/24/2020 PROCEDURE: MD RPLCMT AORTIC VALVE ANNULUS ENLGMENT NONC SINUS; COMMENT: Bioprosthetic aortic valve SECTION PROCEDURE: HISTORICAL DELIVERY TUBAL LIGATION Left PROCEDURE: HISTORICAL TUBAL LIGATION TUBAL LIGATION Right PROCEDURE: HISTORICAL TUBAL LIGATION Medical History Medical History Date Comments Rheumatoid arthritis ([facility] V24, [facility] V28) DX:Rheumatoid arthritis ([facility]) Anemia DX:Anemia Headache DX:Headache Diabetes mellitus ([facility] V24, [facility] V28) DX:Diabetes mellitus ([facility]) Cataract DX:Cataract Family History Medical History Relation Name Comments Diabetes Father Hypertension Father Hypertension Maternal Grandfather Hypertension Maternal Grandmother Diabetes Paternal Grandfather Hypertension Paternal Grandfather Diabetes Paternal Grandmother Hypertension Paternal Grandmother Relation Name Status Comments Father Maternal Grandfather Maternal Grandmother Paternal Grandfather Paternal Grandmother Social History Tobacco Use Types Packs/Day Years Used Date Smoking Tobacco: Former Smokeless Tobacco: Former Alcohol Use Standard Drinks/Week Comments Yes 0 (1 standard drink = 0.6 oz pur e alcohol) Comments Unknown Sex and Gender Information Value Date Recorded Sex Assigned at Not on file Legal Sex Female 12:59 AM EST Gender Identity Not on file Sexual Orientation Not on file Obstetrics History Last Filed Vital Signs Vital Sign Reading Time Taken Comments Blood Pressure 120/80 06/16/2024 8:37 AM EST Pulse 61 02/29/2024 8:58 AM EDT Temperature - - Respiratory Rate - - Oxygen Saturation - - Inhaled Oxygen Concentration - - Weight 84.8 kg (187 lb) 06/16/2024 8:37 AM EST Height 154.9 cm (5' 1 ) 06/16/2024 8:37 AM EST Body Mass Index 35.33 06/16/2024 8:37 AM EST Plan of Treatment Upcoming Encounters Date Type Department Care Team (Late st Contact Info) Description 02/17/2025 7:50 AM EDT Office Visit [facility] [address] [place] [id number] Lucio Rosales MD [address] [place] [address] [address] [place] [address] Health Maintenance Due Date Last Done Comments Diabetes: Annual GFR (Glomerular Filtration Rate) 1974 Diabetes: Annual Foot Exam 1984 Diabetes: Annual Retina Eye Exam 1984 DTaP,Tdap,and Td Vaccines (1 - Tdap) 1993 Hepatitis B Vaccines (1 of 3 - 19+ 3-dose series) 1993 Pneumococcal Vaccine: 50+ Years (1 of 2 - PCV) 1993 Pneumococcal Vaccine: Pediatrics (0 to 5 Years) and At-Risk Patients (6 to 64 Years) (1 of 2 - PCV) 1993 Cervical Cancer Screening: P ap Smear 1995 Cholesterol Screening (Lipid Panel) 07/02/2022 Colorectal Cancer Screening: Colonoscopy 07/02/2022 Depression Screening 07/02/2022 HIV Screening 07/02/2022 Hepatitis C Screening 07/02/2022 Social Influencers of Health Screening 07/02/2022 Diabetes: Annual Urine Albumin-Creatinine Ratio (uACR) 07/14/2022 Diabetes: Blood Sugar Contro l Test (HGBA1C) 07/14/2022 COVID-19 Vaccine ( - 2023-2 5 season) 2024 Zoster Vaccines (1 of 2) 2024 Influenza Vaccine (#1) 2025 Breast Cancer Screening 02/14/2026 02/15/20, 10/12/2022, 08/29/2021 HIB Vaccines Aged Out No longer eligi ble based on patient's age to complete this topic HPV Vaccines Aged Out No longer eligi ble based on patient's age to complete this topic Hepatitis A Vaccines Aged Out No long er eligible based on patient's age to complete this topic IPV Vaccines Aged Out No longer eligi ble based on patient's age to complete this topic MMR Vaccines Aged Out No longer eligi ble based on patient's age to complete this topic Meningococcal ACWY Vaccine Aged Out N o longer eligible based on patient's age to complete this topic Meningococcal B Vaccine Aged Out No l onger eligible based on patient's age to complete this topic RSV Immunization Patients Under 20 months Aged Out No longer eligible b ased on patient's age to complete this topic Varicella Vaccines Aged Out No longer eligible based on patient's age to complete this topic Procedures Procedure Name Priority Date/Time Associated Diagnosis Comments [facility] SCREENING DIGITAL Routine 02/15/2024 4:13 PM EDT Encounter for screening mammogram for malignant neoplasm of breast from Last 3 Months or Most Recently Relevant to Health Maintenance Results * [facility] SCREENING DIGITAL (02/15/2024 4:13 PM EDT) Anatomical Region Laterality Modality Mammography 02/15/2024 2:01 PM EDT Narrative 02/15/2024 4:13 PM EDT [facility] Diagnostic Imaging Department [address] [place] [address] Patient: JOEY SAENZMihaela /Age/Sex: 1975 - 48 - F Unit#: [id number] Location/Status: [facility]/REG CLI Mnemonic/Ordering Site: [facility] Ordering Physician: ROSETTA HAWKINS MD [facility] Screening Digital - 02/15/24 - 142 Report Status:Signed EXAM: [facility] Screening Digital EXAM DATE AND TIME: 02/15/2024 2:30 PM HISTORY: Screening. Paternal aunt had breast carcinoma. COMPARISON: 10/12/22, 08/29/21 TECHNIQUE: Bilateral digital breast tomosynthesis was performed in the CC and MLO projections. Computer aided detection with [employer] 3D 3.1 was employed. TISSUE DENSITY: b. There are scattered areas of fibroglandular density. FINDINGS: No suspicious masses, grouped microcalcifications, or areas of architectural distortion are seen. Benign rim calcifications are again seen. The skin and vascularity are unremarkable. IMPRESSION: Stable mammographic appearance of the breasts. No evidence of malignancy is seen. A negative mammogram in the presence of a clinically suspicious palpable abnormality does not preclude the possibility of malignancy or alter the indicat ions for biopsy. BI-RADS: Category 2: Benign RECOMMENDATION(S): 1: Routine screening mammogram BILATERAL in 1 year. Dictating Physician: AYSHA BAZAN MD Electronically Signed by: AYSHA BAZAN MD Dic Date/Time: 02/15/241612 Sign date/Time: 02/15/241612 Procedure Note Aysha Bazan MD - 05/14/2024 [facility] Diagnostic Imaging Department [address] [place] [id number] Patient: ODETTE SAENZ /Age/Sex: 1975 - 48 - F Unit#: [id number] Location/Status: [facility] CLI Mnemonic/Ordering Site: [facility] Ordering Physician: ROSETTA HAWKINS MD [facility] Screening Digital - 02/15/24 - 1429 Report Status:Signed EXAM: [facility] Screening Digital EXAM DATE AND TIME: 02/15/2024 2:30 PM HISTORY: Screening. Paternal aunt had breast carcinoma. COMPARISON: 10/12/22, 08/29/21 TECHNIQUE: Bilateral digital breast tomosynthesis was performed in the CCand MLO projections. Computer aided detection with [employer] 3D 3.1was employed. TISSUE DENSITY: b. There are scattered areas of fibroglandular density. FINDINGS: No suspicious masses, grouped microcalcifications, or areas ofarchitectural distortion are seen. Benign rim calcifications are again seen. The skinand vascularity are unremarkable. IMPRESSION: Stable mammographic appearance of the breasts. No evidence of malignancyis seen. A negative mammogram in the presence of a clinically suspicious palpable abnormality does not preclude the possibility of malignancy or alter theindicat ions for biopsy. BI-RADS: Category 2: Benign RECOMMENDATION(S): 1: Routine screening mammogram BILATERAL in 1 year. Dictating Physician: AYSHA BAZAN MD Electronically Signed by: AYSHA BAZAN MD Dic Date/Time: 02/15/24 1613 Sign date/Time: 02/15/24 1613 Rosetta Hawkins MD IMG BI PROCEDURES Final Resul t from Last 3 Months or Most Recently Relevant to Health Maintenance Insurance MEDICAID - [place] Care Teams Stone Mill Operator Relationship Specialty Start Date End Date Rosetta Hawkins MD [address] [facility] [address] [place], [place] PCP - General Internal Medicine 06/08/21
--- OUTSIDE RECORDS SUMMARY | 2025-01-27 14:03 | XMS_ITS | Clinical Summary ---
Author Organization [facility] Address [address] [place] [address] Care Team Providers Care Nurse Prn Name Role Phone Unavailable Primary Care Provider [...] Plan of Treatment Not on file Insurance [place] MEDICAID DENTAL [facility] D[facility]AL
--- OUTSIDE RECORDS SUMMARY | 2025-01-27 14:03 | XMS_ITS | Patient Health Record ---
Author Organization [facility] Address [address] [place] [address] Care Team Providers Care Blindstitch Lining Feller Name Role Phone Rosetta Penaloza Primary Care Provider Unavailab Everett Solis Jr Unavailable Allergies No Known Allergies Reason For Referral No Information Medications Medication SIG (Take, Route, Frequency, Duration) Notes Start Date End Date Status MiraLax (colon prep) 17 GM/SCOOP mixed with Gatorade or Crystal Light Orally begin at 5:00 p.m. the day before the procedure for 1 day 04/25/2023 Active metFORMIN HCl 500 MG TAKE 2 TABLETS BY M OUTH TWICE DAILY WITH MEALS Oral for 90 Active Atorvastatin Calcium 20 MG TAKE 1 TABLET BY MOUTH DAILY AT BEDTIME Oral for 90 Active DULoxetine HCl 60 MG TAKE 1 CAPSULE BY M OUTH EVERY DAY Oral for 90 Active MiraLax (colon prep) 8.3 ounce ((238) grams mixed with Gatorade or Crystal Light orally begin at 5:00 p.m. the day before the procedure for 1 day 05/01/2023 Active Ibuprofen 600 MG TAKE 1 TABLET BY SOLO TH EVERY 6 HOURS Oral for 30 Active Dulcolax (colon prep) 5 MG take at 3:00 p.m and 7:00p.m. Orally two tablets twice a day for one day for 1 day 05/01/2023 Active Aspirin Low Dose 81 MG TAKE 1 TABLET BY MOUTH EVERY DAY Oral for 90 Active Immunizations Vaccine Route Administration Date Status Comme nts Influenza Unknown 04/25/2023 Refused Social History Tobacco Use: Social History Observation Description Date Details (start date - stop date) Former Smoker NA - NA Tobacco Use/Smoking Question Answer Notes Patient is a former smoker Alcohol Screen Question Answer Notes Did you have a drink contain ing alcohol in the past year? Yes How often did you have a dri nk containing alcohol in the past year? Monthly or less (1 point) How many drinks did you have on a typical day when you were drinking in the past year? 1 or 2 drinks (0 point) How often did you have 6 or more drinks on one occasion in the past year? Never (0 point) Points 1 Interpretation Negative Problems Problem Type SNOMED Code ICD Code Onset Dates Problem Status W/U Status Risk Notes Problem 294744276 Special screening for malignant neoplasms, colon (Z12.11) Active confirmed Problem 741822083 Long-term use of aspirin therapy (Z79.82) Active confirmed Problem 140768342 NSAID long-term use (Z79.1) Active confirmed Plan Of Treatment Future Test Test Name Order Date COLONOSCOPY 04/25/2023 Insurance Providers Payer Name Payer Address Payer Phone Subscriber Number Group Number Insured Name Patient Relationship to Insured Coverage Start Date Coverage End Date MEDICAID OF [facility] [address] [place] [phone] [id number] ODETTE KING Self - patient is the insured Medical (General) History Medical History History ICD Code Diabetes mellitus type 2 Hyperlipidemia Depression Osteoarthritis Valvular heart disease B12 deficiency Surgical History Surgery Date(Month/Year) Bioprosthetic AVR, echocardiogram 11/18 n ormal per patient 2020
[2025-01-27 14:11] LABS: Hemoglobin A1C 163.5269 umol/L; Total Hemoglobin (HGBA1C) 3331.1433 umol/L
[2025-01-27 14:28] LABS: Alanine Aminotransferase 51 U/L (0-31); Albumin Level 4.2 g/dL (3.5-5.0); Alkaline Phosphatase 66 U/L (39-117); Anion Gap 13 (12-20); Aspartate Amino Transferase 36 U/L (5-31); Blood Urea Nitrogen 14 mg/dL (9-16); Calcium 9.2 mg/dL (8.4-10.2); Carbon Dioxide 25 mmol/L (22-29); Chloride 107 mmol/L (96-108); Estimated Glomerular Filt Rate > 60; Potassium 4.1 mmol/L (3.3-5.1); Sodium 141 mmol/L (135-145); Total Protein 7.8 g/dL (6.5-8.0)
== END 2025-01-27 13:02 | disposition home or self-care (01) ==
LOC: HO.LAB 13:01
PROVIDERS: PCP Internal Medicine; Visit Provider Internal Medicine
DX: E11.9 Type 2 diabetes mellitus without complications (principal); E78.00 Pure hypercholesterolemia, unspecified; M06.4 Inflammatory polyarthropathy; Z95.4 Presence of other heart-valve replacement
CPT/HCPCS: 36415; 80053; 83036